=== PATIENT | female | born 1975 | race Caucasian/White ===

== ENCOUNTER 2021-07-22 06:24 | Emergency (ER) | payer MEDICAID ==
[~2021-07-22] VITALS: Ht 172.7 cm; Wt 81.6 kg
--- NOTE | 2021-07-22 06:32 | NUR ---
Dr Marr at bedside, MSE in progress.
[2021-07-22] MEDS ORDERED: MUPI22OI2 TP (06:51)
--- NOTE | 2021-07-22 07:03 | NUR ---
Patient given written and verbal discharge instructions. Patient verbalizes understanding of instructions. Patient is ambulatory with steady gait. Refuses offer of [facility] placement. Patient given list of available shelters in surrounding area. pt refused to sign discharge papers.
[2021-07-22 07:05] VITALS: BP 122/60
== END 2021-07-22 07:06 | disposition home or self-care (01) ==
LOC: ER 06:41
DX: S31.109A Unspecified open wound of abdominal wall, unspecified quadrant without penetration into peritoneal cavity, initial encounter (principal); L08.9 Local infection of the skin and subcutaneous tissue, unspecified; X58.XXXA Exposure to other specified factors, initial encounter; Y92.89 Other specified places as the place of occurrence of the external cause; Z59.00 Homelessness unspecified
CPT/HCPCS: A4663